=== PATIENT | male | born 2000 | race African-American/Black ===

== ENCOUNTER 2020-04-30 06:13 | Emergency (ER) | payer OTHER, SELFPAY ==
--- NOTE | ~2020-04-30 | XR_ITS ---
EXAMINATION: XR chest 2V DATE: 04/30/2020 06:43 INDICATION: Midsternal chest pain TECHNIQUE: Frontal and lateral views of the chest are obtained COMPARISON: None available FINDINGS: The lungs are free of acute opacities. There is no pleural effusion or pneumothorax. The ca rdiomediastinal silhouette is normal. The visualized bones and soft tissues are unremarkable. IMPRESSION: 1. No acute cardiopulmonary abnormality. Reviewed, dictated and finalized at location A. MECHANICAL ENGINEER
[2020-04-30 06:16] VITALS: BP 134/88; PULSE 81; RESP 24; TEMP 36.9; O2SAT 100
[2020-04-30 06:20] VITALS: PULSE 70
--- NOTE | 2020-04-30 06:22 | ECG_ITS ---
Measurements Intervals [place] Rate: 68 P: 70 W[place]: 154 QRS: 66 QRSD: 93 T: 56 QT: 381 QTc: 407 Interpretive Statements SINUS RHYTHM WITH SINUS ARRHYTHMIA BASELINE WANDER- II, III, V4 NORMAL ECG Electronically Signed On 04-30-2020 7:07:19 BODY WELDER by Chepe Hilario D.O.
[2020-04-30 06:48] LABS: Anion Gap 8 mmol/L (8-16); Blood Urea Nitrogen 11 mg/dL (9-20); Calcium 9.3 mg/dL (8.4-10.2); Carbon Dioxide 28 mmol/L (22-30); Chloride 105 mmol/L (98-107); Estimated CRCL calculation 100 ml/min; Estimated Glomerular Filt Rate > 60; Glucose 80 mg/dL (75-110); Potassium 3.8 mmol/L (3.4-5.0); Sodium 141 mmol/L (137-145)
[2020-04-30 06:50] LABS: Basophils Percent Auto 0.5 % (0.2-1.2); Eosinophils Absolute Auto 0.1 K/mm3 (0-0.3); Hematocrit 41.5 % (42.0-52.0); Hemoglobin 13.8 g/dL (14.0-18.0); Immature Granulocyte Absolute 0.02 K/mm3 (0.00-0.031); Immature Granulocyte Percent A 0.2 % (0-0.5); Lymphocytes Percent Auto 41.9 % (18.3-44.2); Mean Corpuscular HGB Conc 33.3 g/dl (32-36); Mean Corpuscular Hemoglobin 28.3 pg (26-34); Mean Platelet Volume 9.6 fl (7.4-10.4); Monocytes Absolute Auto 0.6 K/mm3 (0.1-0.6); Monocytes Percent Auto 7.2 % (2.6-8.5); Neutrophils Absolute Auto 4.2 K/mm3 (1.3-6.7); Neutrophils Percent Auto 49.2 % (45.5-73.1); Platelet Count Result 238 k/mm3 (150-375); Red Blood Count 4.88 M/mm3 (4.6-6.20); Red Cell Distribution Width 12.1 % (11.5-14.5); White Blood Count 8.6 K/mm3 (4.5-10.0)
[2020-04-30 06:53] LABS: Prothrombin Time 13.5 Seconds (11.1-14.7)
[2020-04-30 07:01] LABS: Troponin I < 0.012 ng/mL (0.000-0.034)
[2020-04-30 07:11] LABS: Partial Thromboplastin Time 30.9 SECONDS (22.3-36.8)
--- NOTE | 2020-04-30 07:38 | ED.CHESTPAIN ---
HPI - Chest Pain General Chief Complaint: Chest Pain Stated Complaint: chest pain Time Seen by Provider: 04/30/20 07:28 Source: patient Mode of arrival: ambulatory Limitations: no limitations History of Present Illness HPI narrative: 19 years old -[place] male presents with retrosternal burning sensation for few weeks Worse sometimes with eating and laying down flat. Nothing make it better. Patient denies any fever, chills, nausea, vomiting, shortness of breath, back pain, headache, exposure to anybody known to have COVID-19. Patient smokes marijuana, does not drink. Related Data Allergies Allergy/AdvReac Type Severity Reaction Status Date / Time No Known Allergies Allergy Verified 04/30/20 06:20 Review of Systems Review of Systems: Narrative: CONSTITUTIONAL: Denies fever, chills, or sweats. EYES: Denies visual changes, redness, or discharge. ENT: Denies rhinorrhea, congestion, sore throat, or otalgia. CARDIOVASCULAR: Denies chest pain, palpitations, or edema. RESPIRATORY: Denies cough or dyspnea. GASTROINTESTINAL: Denies abdominal pain, nausea, vomiting, or diarrhea. GENITOURINARY: Denies dysuria or hematuria. SKIN: Denies rash or itching. MUSCULOSKELETAL: Denies back pain, joint pain, or myalgia. NEUROLOGIC: Denies headache, numbness, or weakness. PSYCHIATRIC: Denies anxiety or depression. PMFSH Social History Social History Gender identity (if verbalized by the patient): Male Sexual Orientation (if Verbalized by the Patient): Straight or Heterosexual Exam Narrative: Exam Narrative: General appearance: Well-developed, well-nourished Skin: Normal color Head: Normocephalic, nontraumatic Eyes: Clear conjunctiva ENT: Oropharynx normal, ears normal, nose normal Neck: Supple, nontender Chest and respiratory: Airway patent, no respiratory distress, no accessory muscle use Heart: Regular rate/rhythm Abdomen: Soft, nontender, no organomegaly, quiet bowel sounds Vascular: Normal peripheral pulses, normal capillary refill. Musculoskeletal: Normal range of motion, nontender back Neurologic: Alert and oriented ?3, MOLD MAKER is normal as tested, no gross motor deficit Course Course Emergency Course: Stable Vital Signs Vital signs: Vital Signs Temperature 36.9 C 04/30/20 06:16 Pulse Rate 81 04/30/20 06:16 Respiratory Rate 24 H 04/30/20 06:16 Blood Pressure 134/88 04/30/20 06:16 Pulse Oximetry 100 04/30/20 06:16 Temperature 36.9 C 04/30/20 06:16 Pulse Rate 70 04/30/20 06:20 Respiratory Rate 24 H 04/30/20 06:16 Blood Pressure 134/88 04/30/20 06:16 Pulse Oximetry 100 04/30/20 06:16 MDM - Chest Pain MDM Narrative Medical decision making narrative: Retrosternal burning sensation. High likely acid reflux. Labs, EKG, chest x-ray ordered. Further plan to follow Differential Diagnosis Differential diagnosis: Likely pneumothorax, atypical chest pain, costochondritis and chest pain Lab Data Result diagrams: 04/30/20 06:26 04/30/20 06:26 Labs: Lab Results 04/30/20 04/30/20 04/30/20 Range/Units 06:26 06:26 06:26 WBC 8.6 (4.5-10.0) K/mm3 RBC 4.88 (4.6-6.20) M/mm3 Hgb 13.8 L (14.0-18.0) g/dL Hct 41.5 L (42.0-52.0) % MCV 85.0 (80-100) fl MCH 28.3 (26-34) pg MCHC 33.3 (32-36) g/dl RDW 12.1 (11.5-14.5) % Plt Count 238 (150-375) k/mm3 MPV 9.6 (7.4-10.4) fl Immature Gran % (Auto) 0.2 (0-0.5) % Neut % (Auto) 49.2 (45.5-73.1) % Lymph % (Auto) 41.9 (18.3-44.2) % [place] % (Auto) 7.2 (2.6-8.5) % Eos % (Auto) 1.0 (0-4.4) % Baso % (Auto) 0.5 (0.2-1.2) %
[2020-04-30 08:35] VITALS: BP 121/63; PULSE 56; RESP 16; O2SAT 98
== END 2020-04-30 08:35 | disposition home or self-care (01) ==
PROVIDERS: General Practice; Emergency Provider Emergency Medicine
DX: R07.89 Other chest pain (principal)
CPT/HCPCS: 36415; 71046; 80048; 84484; 85025; 85610; 85730; 93005; 99284

== ENCOUNTER 2022-02-27 09:14 | Emergency (ER) | payer OTHER, SELFPAY ==
[2022-02-27 09:38] VITALS: BP 118/79; PULSE 78; RESP 18; TEMP 36.6; O2SAT 100
--- NOTE | 2022-02-27 10:10 | ED.URI ---
HPI - URI/Sore Throat General Chief Complaint: Upper Respiratory Infection Stated Complaint: SOB,Headache Time Seen by Provider: 02/27/22 10:10 Source: patient Mode of arrival: ambulatory Limitations: no limitations History of Present Illness HPI Narrative: 21 yo M presents with c/o cough, nasal congestion, scratchy throat for 3 days. Reports RSV exposure. Afebrile. Showed up to work today congested so was sent home. Needs work note. Denies CP and SOB. All systems reviewed and negative except as noted above. Related Data Allergies Allergy/AdvReac Type Severity Reaction Status Date / Time No Known Allergies Allergy Verified 04/30/20 06:20 Review of Systems Review of Systems: CONSTITUTIONAL: Denies fever, chills, or sweats. EYES: Denies visual changes, redness, or discharge. ENT: reports rhinorrhea, congestion, sore throat. Denies otalgia. CARDIOVASCULAR: Denies chest pain, palpitations, or edema. RESPIRATORY: report cough. Denies dyspnea. GASTROINTESTINAL: Denies abdominal pain, nausea, vomiting, or diarrhea. GENITOURINARY: Denies dysuria or hematuria. SKIN: Denies rash or itching. MUSCULOSKELETAL: Denies back pain, joint pain, or myalgia. NEUROLOGIC: Denies headache, numbness, or weakness. PSYCHIATRIC: Denies anxiety or depression. All other systems reviewed are negative, except as documented in HPI. [facility] Social History Social History Gender identity (if verbalized by the patient): Male Sexual Orientation (if Verbalized by the Patient): Straight or Heterosexual Comments At time of signature, agree with nursing past medical, surgical, social and family history. There is no relevant family history pertinent to the presenting complaint. Exam Narrative: GENERAL: This is a well-nourished, well-developed patient, in no apparent distress. HEAD: normocephalic, atraumatic. EYES: PERRL. Sclera clear/white. Vision is grossly intact. EARS: External ears normal, auditory canals clear and without drainage, TMs normal without perforation. Hearing grossly intact. NOSE: External nose normal with clear nasal drainage, mild congestion. No sinus tenderness. THROAT: Mucous membranes moist, posterior pharynx clear. NECK: Neck supple, non-tender without lymphadenopathy, masses or thyromegaly. CARDIOVASCULAR: Regular rate and rhythm without murmurs, gallops, or rubs. RESPIRATORY: Clear to auscultation. Breath sounds equal bilaterally. No wheezes, rales, or rhonchi. SKIN: warm, Dry, intact with no suspicious lesions or rash, good texture and turgor. NEURO: awake, alert, and oriented to person, place and time. There were no obvious focal neurologic abnormalities. EXTREMITIES: No joint tenderness, effusion, or edema noted. Course Course Level of Care: Express Care Visit Vital Signs Vital signs: Vital Signs Temperature 36.6 C 02/27/22 09:38 Pulse Rate 78 02/27/22 09:38 Respiratory Rate 18 02/27/22 09:38 Blood Pressure 118/79 02/27/22 09:38 Pulse Oximetry 100 02/27/22 09:38 Oxygen Delivery Room Air 02/27/22 09:38 Temperature 36.6 C 02/27/22 09:38 Pulse Rate 78 02/27/22 09:38 Respiratory Rate 18 02/27/22 09:38 Blood Pressure 118/79 02/27/22 09:38 Pulse Oximetry 100 02/27/22 09:38 Oxygen Delivery Room Air 02/27/22 09:38 Reviewed MDM - URI/Sore Throat MDM Narrative Medical decision making narrative: Patient is aware of diagnosis, understands and agrees to treatment plan. Anticipatory guidance given. Patient agrees to follow-up as directed and is aware of reasons to seek care at the emergency department. Portions of this record may have been created with voice recognition software negative COVID, RSV and influenza test. Afebrile. Well-appearing. Recommend treatment for viral URI with [id number] medications. Differential Diagnosis Differential diagnosis: Likely upper respiratory infection, sinusitis, viral infection
== END 2022-02-27 10:21 | disposition home or self-care (01) ==
PROVIDERS: Emergency Provider Nurse Practitioner Family
DX: J06.9 Acute upper respiratory infection, unspecified (principal); Z76.0 Encounter for issue of repeat prescription; Z20.822 Contact with and (suspected) exposure to COVID-19; J45.909 Unspecified asthma, uncomplicated
CPT/HCPCS: 87420; 87426; 87804; 99213; C9803; G0463

== ENCOUNTER 2022-04-15 13:59 | Emergency (ER) | payer OTHER, SELFPAY ==
--- NOTE | 2022-04-15 14:23 | ED.MALEGU ---
HPI - Male Genitourinary General Chief complaint: Urogenital-Male Stated complaint: UTI Time Seen by Provider: 04/15/22 14:23 Source: patient Mode of arrival: ambulatory Limitations: no limitations History of Present Illness HPI Narrative: Corie is a 21-year-old male patient presenting to clinic today with complaints of penile discharge. He reports symptoms started on Tuesday. He had a new sexual partner on Tuesday and said that symptoms started shortly after. Has greenish white discharge coming from the penis. Also reports some discomfort with urination. No fever or chills Related Data Allergies Allergy/AdvReac Type Severity Reaction Status Date / Time No Known Allergies Allergy Verified 04/15/22 14:20 Review of Systems Review of Systems: Pertinent positives per HPI. Patient denies any fever, chills, rash, headache, visual changes, dizziness, cough, runny nose, sore throat, shortness of breath, chest pain, palpitations, nausea, vomiting, diarrhea, constipation, abdominal pain, or any urinary issues. PMFSH Comments At the time of my signature, I reviewed and agree with the nursing past medical, surgical, social, and family history. There is no relevant family history pertinent to the patient complaint. Exam Narrative: General: Well-developed, well nourished, in no apparent distress. Head: Normocephalic, atraumatic. Cardio: Regular rate and rhythm, s1 and s2 normal, no murmur appreciated. Resp: Clear to auscultation bilaterally, no rhonchi, rales, wheezing or rubs. Abdomen: Soft, pliable, bowel sounds present in all quadrants, non-tender to palpation, no organomegly, no CVAT tenderness. Course Course Emergency Course: Portions of this record may have been created with voice recognition software. Level of Care: Express Care Visit Vital Signs Vital signs: Vital signs reviewed MDM - Male Genitourinary MDM Narrative Medical decision making narrative: at the time of visit patient is resting comfortably on exam table. Urinalysis was sent for chlamydia, gonorrhea, trich testing. Prescription for doxycycline was sent to the pharmacy and Rocephin 500 mg IM was given in the clinic today. Anticipatory guidance and supportive measures were discussed with the patient he voiced understanding discharge instructions agrees to treatment plan. Lab Data Labs: Urine Characteristics Clear Discharge Plan Discharge Clinical Impression: Discharge from penis Patient Disposition: Home, Self-Care Condition: Stable Instructions: Antibiotic Form Additional Instructions: Rocephin 500 mg IM given in the clinic today- this will treat gonorrhea Take doxycycline 100 mg twice daily x7 days as prescribed- this will treat chlamydia We have tested/treated you for STIs in the clinic today. Avoid any sexual activity- includes oral, anal, or vaginal intercourse until you get results back and have completed any additional recommended treatment regimens. We will contact you if testing is positive and make sure your treatment was appropriate for the type of STI. If symptoms worsen after treatment recommend reevaluation with your PCP or go to the STD clinic Prescriptions: New doxycycline monohydrate 100 mg capsule 100 mg PO BID 7 Days Qty: 14 0RF Follow-up/Referrals: PHYSICIAN,PATCH PRESS OPERATOR [Primary Care Provider] - Time of Disposition: 14:37 Quality NIHSS Nursing Documentation ED NIHSS nursing documentation: reviewed/agree
[2022-04-15 14:32] VITALS: BP 128/86; PULSE 65; RESP 16; TEMP 37.2; O2SAT 99
[2022-04-15] MEDS: cefTRIAXone 500 MG, LIDOCAINE HCL 1% LOCAL INJ 1 ML IM (14:42)
== END 2022-04-15 15:02 | disposition home or self-care (01) ==
PROVIDERS: Emergency Provider Nurse Practitioner Family
DX: R36.9 Urethral discharge, unspecified (principal)
CPT/HCPCS: 87491; 87591; 87661; 96372; 99213; G0463; J0696

== ENCOUNTER 2022-06-16 13:10 | Emergency (ER) | payer OTHER, SELFPAY ==
[2022-06-16 13:19] VITALS: BP 121/64; PULSE 77; RESP 14; TEMP 36.5; O2SAT 100
--- NOTE | 2022-06-16 13:20 | ED.URI ---
HPI - URI/Sore Throat General Chief Complaint: Upper Respiratory Infection Stated Complaint: SOB Time Seen by Provider: 06/16/22 13:21 Source: patient Mode of arrival: ambulatory Limitations: no limitations History of Present Illness HPI Narrative: Coire is a 21-year-old male patient presenting to the clinic today with complaints of shortness of breath, nasal congestion, and sore throat x2 days. He reports he has a history of asthma and he has been using his inhaler without relief. States he taken some [place] and that did help with the sore throat. MD elicited complaint: sore throat, nasal congestion and other (Shortness of breath) Related Data Home Medications Medication Instructions Recorded Confirmed albuterol 90 mcg/actuation aerosol 90 mcg inhalation Q4-6H PRN SOB 06/16/22 06/16/22 inhaler Allergies Allergy/AdvReac Type Severity Reaction Status Date / Time No Known Allergies Allergy Verified 06/16/22 13:11 Review of Systems Review of Systems: Pertinent positives per HPI. Patient denies any fever, chills, rash, headache, visual changes, dizziness, chest pain, palpitations, nausea, vomiting, diarrhea, constipation, abdominal pain, or any urinary issues. PMFSH Comments At the time of my signature, I reviewed and agree with the nursing past medical, surgical, social, and family history. There is no relevant family history pertinent to the patient complaint. Exam Narrative: General: Well-developed, well nourished, in no apparent distress Head: Normocephalic, atraumatic Eyes: Pupils equally round and reactive to light bilaterally, EOM intact, sclera and conjunctive clear, no discharge, lids normal Ears: TMs intact and clear, ear canals clear, no drainage, grossly hearing normal. Nose: Nares patent, no discharge, no inflammation, no sinus tenderness. Mouth: Oral pharynx without lesions or masses, good dentition, MMM. Neck: Supple, trachea midline, no enlargement of anterior or posterior cervical nodes, no thyroid masses or goiter palpable. Cardio: Regular rate and rhythm, s1 and s2 normal, no murmur appreciated. Resp: Clear to auscultation bilaterally, no rhonchi, rales, wheezing or rubs Course Course Emergency Course: Portions of this record may have been created with voice recognition software. Level of Care: Express Care Visit Vital Signs Vital signs: Vital Signs Temperature 36.5 C 06/16/22 13:19 Pulse Rate 77 06/16/22 13:19 Respiratory Rate 14 06/16/22 13:19 Blood Pressure 121/64 06/16/22 13:19 Pulse Oximetry 100 06/16/22 13:19 Oxygen Delivery Room Air 06/16/22 13:19 Temperature 36.5 C 06/16/22 13:19 Pulse Rate 77 06/16/22 13:19 Respiratory Rate 14 06/16/22 13:19 Blood Pressure 121/64 06/16/22 13:19 Pulse Oximetry 100 06/16/22 13:19 Oxygen Delivery Room Air 06/16/22 13:19 Vital signs reviewed MDM - URI/Sore Throat MDM Narrative Medical decision making narrative: At the time of visit patient is resting comfortably on exam table. Strep screen was obtained was negative in the clinic today. I suspect patient has URI/pharyngitis. Lung sounds are clear. Will send in prescription for prednisone to help with nasal congestion and pharyngitis. Supportive measures were discussed with the patient he voiced understanding discharge instructions agrees to treatment plan Differential Diagnosis Differential diagnosis: Likely upper respiratory infection, viral infection, bronchitis, influenza, pharyngitis and other (Asthma exacerbation) Discharge Plan Discharge Clinical Impression: Upper respiratory infection Qualifiers: URI type: unspecified URI Qualified Code(s): J06.9 - Acute upper respiratory infection, unspecified Pharyngitis Qualifiers: Pharyngitis/tonsillitis etiology: unspecified etiology Qualified Code(s): J02.9 - Acute pharyngitis, unspecified Patient Disposition: Home, Self-Care Condition: Stable Instructions: Antibiotic F
== END 2022-06-16 13:45 | disposition home or self-care (01) ==
PROVIDERS: Emergency Provider Nurse Practitioner Family
DX: J02.9 Acute pharyngitis, unspecified (principal)
CPT/HCPCS: 87081; 87880; 99213; G0463

== ENCOUNTER 2022-08-30 16:34 | Emergency (ER) | payer OTHER, SELFPAY ==
[2022-08-30 16:48] VITALS: BP 123/67; PULSE 80; RESP 12; TEMP 36.7; O2SAT 100
--- NOTE | 2022-08-30 16:48 | ED.URI ---
HPI - URI/Sore Throat General Chief Complaint: Upper Respiratory Infection Stated Complaint: painful respiration on inspiration Time Seen by Provider: 08/30/22 17:40 Source: patient and RN notes reviewed Mode of arrival: ambulatory Limitations: no limitations History of Present Illness HPI Narrative: 21-year-old male presents with concern of for painful respiration on inspiration and, epigastric pain. Reports he used his inhaler earlier it helps. Reports he still having epigastric pain. He reports history of atypical chest pain that is related to acid reflux. He reports he has been belching a lot. He reports he is running out of his inhaler. He reports he took the medication from his grandmother, he thinks it was Carafate a few weeks ago that helped with the symptoms. MD elicited complaint: cough Related Data Allergies Allergy/AdvReac Type Severity Reaction Status Date / Time No Known Allergies Allergy Verified 08/30/22 17:08 Review of Systems Review of Systems: CONSTITUTIONAL: Denies malaise, chills, sweats, or fever. EYES: Denies visual changes, redness, or discharge. ENT: Denies rhinorrhea, congestion, sinus pain, otalgia and sore throat. CARDIOVASCULAR: Denies chest pain, palpitations, or edema. RESPIRATORY: Reports cough, painful inspirations. Denies dyspnea. GASTROINTESTINAL: Reports epigastric pain and belching. Denies nausea, vomiting, diarrhea SKIN: Denies rash or itching. MUSCULOSKELETAL: Denies myalgia. NEUROLOGIC: Denies headache. All systems reviewed & are unremarkable except as noted in HPI and below PMFSH Social History Social History Gender identity (if verbalized by the patient): Male Sexual Orientation (if Verbalized by the Patient): Straight or Heterosexual Comments At time of signature, agree with nursing past medical, surgical, social and family history. There is no relevant family history pertinent to the presenting complaint Exam Narrative: GENERAL: Well-appearing, well-nourished, and in no acute distress. HEAD: Normocephalic EYES: PERRLA, conjunctivae clear ENT: Nares clear, turbinates edematous and erythematous, clear discharge. Mucous membranes moist. TM pearly sanchez with dull light reflex bilaterally; no tragal tenderness. Oropharynx not erythematous without lesions. Tonsils not enlarged and without exudate, no drooling, no hoarseness, no trismus, uvula midline. NECK: Supple. No lymphadenopathy CHEST: Clear to auscultation, breath sounds equal. No wheezing, rhonchi, rales, or stridor. No respiratory distress, speaks in full sentences. HEART: Regular rate and rhythm. No murmur heard. ABD: Soft, nontender, normal bowel sounds SKIN: Warm, dry, no rash. NEURO: Alert and oriented x3. PSYCH: Normal mood and affect Course Course Emergency Course: Patient is aware of diagnosis, understands and agrees to treatment plan. Anticipatory guidance given. Patient agrees to follow-up as directed and is aware of reasons to seek care at the emergency department. Portions of this record may have been created with voice recognition software Level of Care: Express Care Visit Reevaluation(s) Reevaluation #1: Patient reports epigastric pain went away with GI cocktail Date: 08/30/22 Time: 18:08 Vital Signs Vital signs: Vital Signs Temperature 98.1 F 08/30/22 16:48 Pulse Rate 80 08/30/22 16:48 Respiratory Rate 12 08/30/22 16:48 Blood Pressure 123/67 08/30/22 16:48 Pulse Oximetry 100 08/30/22 16:48 Oxygen Delivery Room Air 08/30/22 16:48 Temperature 98.1 F 08/30/22 16:48 Pulse Rate 80 08/30/22 16:48 Respiratory Rate 12 08/30/22 16:48 Blood Pressure 123/67 08/30/22 16:48 Pulse Oximetry 100 08/30/22 16:48 Oxygen Delivery Room Air 08/30/22 16:48 Reviewed. MDM - URI/Sore Throat MDM Narrative Medical decision making narrative: Differential diagnosis considered: [place] virus, strep pharyngitis
[2022-08-30] MEDS: LIDOCAINE HCL 2% VISC SOLN 15 ML UDC PO (17:56)
[2022-08-30] MEDS: MAG HYDROX/AL HYDROX/SIMETH 30 ML UDC PO (17:56)
== END 2022-08-30 18:23 | disposition home or self-care (01) ==
PROVIDERS: Emergency Provider Nurse Practitioner
DX: R10.13 Epigastric pain (principal); J45.909 Unspecified asthma, uncomplicated; K21.9 Gastro-esophageal reflux disease without esophagitis
CPT/HCPCS: 99213; A9270; G0463

== ENCOUNTER 2022-10-16 16:54 | Emergency (ER) | payer SELFPAY ==
[2022-10-16 17:08] VITALS: BP 121/76; PULSE 55; RESP 16; TEMP 37.3; O2SAT 99
--- NOTE | 2022-10-16 17:23 | ED.GENADULT ---
HPI - General Adult General Chief complaint: Psychiatric Symptoms Stated complaint: depressed state Time Seen by Provider: 10/16/22 17:23 Source: patient Mode of arrival: ambulatory Limitations: no limitations History of Present Illness HPI narrative: 21-year-old male presents with his girlfriend with complaint depression. Reports that he has been depressed for the past 5 days. Denies SI/ HI. Patient alert and talkative. Does not have a primary care physician. States he has a history of depression in use to have therapy done at a place in [place] that Has closed. he has never taking any medications to treat his depression. States that due to his depression he had to miss work today and needs a note. All systems reviewed and negative except as noted above. Related Data Home Medications Medication Instructions Recorded Confirmed albuterol 10/16/22 Allergies Allergy/AdvReac Type Severity Reaction Status Date / Time No Known Allergies Allergy Verified 10/16/22 17:02 Review of Systems Review of Systems: CONSTITUTIONAL: Denies fever, chills, or sweats. EYES: Denies visual changes, redness, or discharge. ENT: Denies rhinorrhea, congestion, sore throat, or otalgia. CARDIOVASCULAR: Denies chest pain, palpitations, or edema. RESPIRATORY: Denies cough or dyspnea. GASTROINTESTINAL: Denies abdominal pain, nausea, vomiting, or diarrhea. GENITOURINARY: Denies dysuria or hematuria. SKIN: Denies rash or itching. MUSCULOSKELETAL: Denies back pain, joint pain, or myalgia. NEUROLOGIC: Denies headache, numbness, or weakness. PSYCHIATRIC: Denies anxiety . Reports depression. All other systems reviewed are negative, except as documented in HPI. PMFSH Social History Social History Gender identity (if verbalized by the patient): Male Sexual Orientation (if Verbalized by the Patient): Straight or Heterosexual Comments At time of signature, agree with nursing past medical, surgical, social and family history. There is no relevant family history pertinent to the presenting complaint. Exam Narrative: GENERAL: This is a well-nourished, well-developed patient, in no apparent distress. HEAD: normocephalic, atraumatic. EYES: PERRL. Sclera clear/white. Vision is grossly intact. EARS: External ears normal NOSE: External nose normal NECK: Neck supple, non-tender without lymphadenopathy, masses or thyromegaly. CARDIOVASCULAR: Regular rate and rhythm without murmurs, gallops, or rubs. RESPIRATORY: Clear to auscultation. Breath sounds equal bilaterally. No wheezes, rales, or rhonchi. SKIN: warm, Dry, intact with no suspicious lesions or rash, good texture and turgor. NEURO: awake, alert, and oriented to person, place and time. There were no obvious focal neurologic abnormalities. EXTREMITIES: No joint tenderness, effusion, or edema noted. Course Course Level of Care: Express Care Visit Vital Signs Vital signs: Vital Signs Temperature 37.3 C 10/16/22 17:08 Pulse Rate 55 L 10/16/22 17:08 Respiratory Rate 16 10/16/22 17:08 Blood Pressure 121/76 10/16/22 17:08 Pulse Oximetry 99 10/16/22 17:08 Oxygen Delivery Room Air 10/16/22 17:08 Temperature 37.3 C 10/16/22 17:08 Pulse Rate 55 L 10/16/22 17:08 Respiratory Rate 16 10/16/22 17:08 Blood Pressure 121/76 10/16/22 17:08 Pulse Oximetry 99 10/16/22 17:08 Oxygen Delivery Room Air 10/16/22 17:08 reviewed Medical Decision Making MDM Narrative Medical decision making narrative: patient is well-appearing. Requesting a work note due to missing work today because of his depression. Patient is alert and talkative. None tearful. Laughing with staff at registration and while getting vital signs taken. Patient given referral to [facility] for further evaluation of his depression. Patient is aware of diagnosis, understands and agrees to treatment plan. Anticip
== END 2022-10-16 17:38 | disposition home or self-care (01) ==
PROVIDERS: Emergency Provider Nurse Practitioner Family
DX: Z71.1 Person with feared health complaint in whom no diagnosis is made (principal); J45.909 Unspecified asthma, uncomplicated; K21.9 Gastro-esophageal reflux disease without esophagitis
CPT/HCPCS: 99211; G0463

== ENCOUNTER 2023-05-21 18:46 | Emergency (ER) | payer OTHER, SELFPAY ==
[2023-05-21 19:05] VITALS: BP 118/65; PULSE 84; RESP 18; TEMP 36.6; O2SAT 98
--- NOTE | 2023-05-21 19:11 | ED.GENADULT ---
HPI - General Adult General Chief complaint: Extremity Injury, Lower Stated complaint: Right Ankle Pain Time Seen by Provider: 05/21/23 19:11 Source: patient Mode of arrival: ambulatory Limitations: no limitations History of Present Illness HPI narrative: 22-year-old male patient presents to the [facility] for evaluation of right foot pain. Patient states that he was playing on a basketball team yesterday and landed wrong on his ankle and had some pain. Patient states this was a work basketball E so he was bench for the rest the game. Patient states he rested it last night today feeling much better able to walk on it not having any pain. Patient states he has had issues with his right foot and ankle before in the past. Patient states he is here today because his boss when coming have him checked out to ensure that he is okay to return to work today. Related Data Home Medications Medication Instructions Recorded Confirmed albuterol 90 mcg/actuation aerosol 90 mcg inhalation Q4-6H PRN SOB 06/16/22 05/21/23 inhaler Allergies Allergy/AdvReac Type Severity Reaction Status Date / Time No Known Allergies Allergy Verified 10/20/22 12:49 Review of Systems Review of Systems: CONSTITUTIONAL: Denies fever, chills, or sweats. EYES: Denies visual changes, redness, or discharge. ENT: Denies rhinorrhea, congestion, sore throat, or otalgia. CARDIOVASCULAR: Denies chest pain, palpitations, or edema. RESPIRATORY: Denies cough or dyspnea. GASTROINTESTINAL: Denies abdominal pain, nausea, vomiting, or diarrhea. GENITOURINARY: Denies dysuria or hematuria. SKIN: Denies rash or itching. MUSCULOSKELETAL: Denies back pain, joint pain, or myalgia. Positive right foot pain NEUROLOGIC: Denies headache, numbness, or weakness. PSYCHIATRIC: Denies anxiety or depression. [facility] Social History Social History (System 10/20/22 @ 12:49 by Flaco Tovar) Substance use type: marijuana Gender identity (if verbalized by the patient): Male Sexual Orientation (if Verbalized by the Patient): Straight or Heterosexual Exam Narrative: GENERAL: Well-appearing, well-nourished, and in no acute distress. HEAD: Normocephalic, atraumatic. EYES: PERRLA and EOMI. ENT: Nares clear, no rhinorrhea or epistaxis. Mucous membranes moist. NECK: Supple. No lymphadenopathy CHEST: Clear to auscultation. No respiratory distress. HEART: Regular rate and rhythm. No murmur heard. Normal peripheral pulses. ABDOMEN: Soft, nontender, nondistended, normal active bowel sounds. EXTREMITIES: Patient able to bear weight and ambulate without pain. No surface trauma, ecchymosis, erythema, lesions, ulcers or break in skin integrity. The R foot is without obvious asymmetry or deformity when compared to the L foot. No bony step-off, tender to palpation over the midfoot, no pain over the toes, hindfoot or sole. Normal plantar/dorsiflexion, inversion/eversion. Distal motor and neurovascular status are intact SKIN: Warm, dry, no rash. NEURO: No focal deficits. Alert and oriented x3. Course Course Level of Care: Express Care Visit Vital Signs Vital signs: Vital Signs Temperature 36.6 C 05/21/23 19:05 Pulse Rate 84 05/21/23 19:05 Respiratory Rate 18 05/21/23 19:05 Blood Pressure 118/65 05/21/23 19:05 Pulse Oximetry 98 05/21/23 19:05 Oxygen Delivery Room Air 05/21/23 19:05 Temperature 36.6 C 05/21/23 19:05 Pulse Rate 84 05/21/23 19:05 Respiratory Rate 18 05/21/23 19:05 Blood Pressure 118/65 05/21/23 19:05 Pulse Oximetry 98 05/21/23 19:05 Oxygen Delivery Room Air 05/21/23 19:05 Medical Decision Making MDM Narrative Medical decision making narrative: Due the fact the patient feels that he has no pain today there is only very mild tenderness to the top of the foot most likely an over strain of tendon or ligament I do not feel that we need to do any x-rays at this time. Discussed with patient we will Ismael wrap the foot to
== END 2023-05-21 19:16 | disposition home or self-care (01) ==
PROVIDERS: Emergency Provider Nurse Practitioner Family
DX: S93.401A Sprain of unspecified ligament of right ankle, initial encounter (principal); X50.9XXA Other and unspecified overexertion or strenuous movements or postures, initial encounter; Y93.67 Activity, basketball; F12.90 Cannabis use, unspecified, uncomplicated
CPT/HCPCS: 99212; G0463

== ENCOUNTER 2024-02-01 13:18 | Emergency (ER) | payer SELFPAY ==
[2024-02-01 13:30] VITALS: BP 121/69; PULSE 77; RESP 18; TEMP 37.1; O2SAT 100
--- NOTE | 2024-02-01 13:34 | ED.URI ---
HPI - URI/Sore Throat General Chief Complaint: Upper Respiratory Infection Stated Complaint: Sinus Time Seen by Provider: 02/01/24 13:50 Source: patient, RN notes reviewed and old records reviewed Mode of arrival: ambulatory Limitations: no limitations History of Present Illness HPI Narrative: Patient with history of allergic rhinitis presents today with complaints of runny nose scratchy throat, sneezing, cough. He reports that he noted some discomfort in the throat after his son was over the weekend, when he voice this at work today, he was told he needed to present for testing to make sure that he did not have COVID or strep throat. He denies any fever, chills, sweats. He has not been taking any medication for any of his symptoms. He is in no distress Related Data Home Medications Medication Instructions Recorded Confirmed No Home Medications 02/01/24 02/01/24 Allergies Allergy/AdvReac Type Severity Reaction Status Date / Time No Known Allergies Allergy Verified 02/01/24 13:24 Review of Systems Review of Systems: All systems reviewed & are unremarkable except as noted in HPI and below Constitutional: Constitutional: Reports no additional constitutional complaints ENT: Reports system reviewed and no additional complaints, except as documented, Reports nasal discharge and Reports sore throat Cardiovascular: Cardiovascular: Reports no additional cardiovascular complaints Respiratory: Respiratory: Reports as per HPI, Reports no additional respiratory complaints and Reports cough Gastrointestinal: Gastrointestinal: Reports no additional gastrointestinal complaints Allergic/Immunologic: Allergic/Immunologic: Reports as per HPI, Reports itchy eyes and Reports seasonal rhinorrhea PMFSH Social History Social History Substance use type: marijuana Gender identity (if verbalized by the patient): Male Sexual Orientation (if Verbalized by the Patient): Straight or Heterosexual Comments At the time of my signature, I reviewed and agree with the nursing past medical, surgical, social, and family history. There is no relevant family history pertinent to the patient complaint. Exam Const: General: cooperative, no acute distress, alert and awake Orientation/consciousness: oriented to person, oriented to place and oriented to time HENMT: Head: normal to inspection Resp: Effort & Inspection: normal respiratory effort and able to speak in complete sentences Auscultation: clear to auscultation bilaterally, no crackles, no rales, no rhonchi and no wheezes Cardio: Palpation: normal PMI Rate: regular rate Rhythm: regular rhythm Heart sounds: S1 normal heart sound present and S2 normal heart sound present Neuro: General: oriented to person, oriented to place and oriented to time Cranial nerves: Yes CN's II-XII intact bilaterally Psych: Appearance: grossly normal Thought process: Normal thought process present Insight: Good insight present (Psych) Judgement: Good judgement present (Psych) Course Course Level of Care: Express Care Visit Vital Signs Vital signs: Vital Signs Temperature 98.7 F 02/01/24 13:30 Pulse Rate 77 02/01/24 13:30 Respiratory Rate 18 02/01/24 13:30 Blood Pressure 121/69 02/01/24 13:30 Pulse Oximetry 100 02/01/24 13:30 Oxygen Delivery Room Air 02/01/24 13:30 Temperature 98.7 F 02/01/24 13:30 Pulse Rate 77 02/01/24 13:30 Respiratory Rate 18 02/01/24 13:30 Blood Pressure 121/69 02/01/24 13:30 Pulse Oximetry 100 02/01/24 13:30 Oxygen Delivery Room Air 02/01/24 13:30 Reviewed MDM - URI/Sore Throat MDM Narrative Medical decision making narrative: Patient here because his employer is requiring work note. Symptoms and history consistent with allergic rhinitis. Negative COVID, negative flu, negative strep. Work note provided. Discharge instructions reviewed with patient, as well as pro
== END 2024-02-01 14:10 | disposition home or self-care (01) ==
PROVIDERS: Emergency Provider Nurse Practitioner Family
DX: J30.9 Allergic rhinitis, unspecified (principal); Z20.822 Contact with and (suspected) exposure to COVID-19
CPT/HCPCS: 87081; 87635; 87804; 87880; 99213; G0463

== ENCOUNTER 2024-12-01 15:57 | Emergency (ER) | payer OTHER, SELFPAY ==
--- NOTE | ~2024-12-01 | CT_ITS ---
EXAMINATION: CT brain wo con DATE: 12/01/2024 16:43 INDICATION: syncope . TECHNIQUE: Computed tomography (CT) of the head was performed without intravenous contrast. The mA wa s adjusted according to patient size. Iterative reconstruction technique was employed. The dose-lengt h product was 605.33 mGy-cm. COMPARISON: None. FINDINGS: No acute intracranial hemorrhage or extra-axial fluid collection. No hydrocephalus, mass, or herniation. No acute ischemic infarct. Unremarkable dural venous sinus attenuation. No acute osseous abnormality. The aerated spaces are clear. IMPRESSION: No acute intracranial process. Reviewed, dictated and finalized at location K.
--- NOTE | ~2024-12-01 | XR_ITS ---
EXAMINATION: XR chest 2V Exam Date/Time: 12/01/2024 16:49 CDT HISTORY: tachycardia, PT STATES 'ALMOST PASSED OUT AT WORK' Comparison: 04/30/2020. RESULT: Lines, tubes, and devices: None. Lungs and pleura: Clear. Cardiomediastinal silhouette: Stable. Other: No acute osseous or upper abdominal finding. IMPRESSION: No acute cardiopulmonary process. Reviewed, dictated and finalized at location K.
--- NOTE | 2024-12-01 16:01 | ECG_ITS ---
Test Date: 2024-12-01 16:11:23 Measurements Intervals [place] Rate: 54 P: 59 KS: 170 QRS: 65 QRSD: 97 T: 58 QT: 406 QTc: 385 Interpretive Statements SINUS BRADYCARDIA WITH OCCASIONAL ECTOPIC PREMATURE COMPLEXES ST ELEVATION IN DIFFUSE LEADS- PROBABLY EARLY REPOLARIZATION ABNORMALITY BORDERLINE ECG No previous ECG available for comparison Electronically Signed On 12-01-2024 19:52:08 CDT by Chepe Hilario D.O.
[2024-12-01 16:07] VITALS: BP 137/87; PULSE 62; RESP 16; TEMP 36.6; O2SAT 100
[2024-12-01 16:30] VITALS: BP 138/105; PULSE 56; RESP 16; O2SAT 100
--- NOTE | 2024-12-01 16:32 | ED.GENADULT ---
HPI - General Adult General Chief complaint: Environmental Exposure Stated complaint: heat exhaustion Source: patient Mode of arrival: EMS Limitations: no limitations History of Present Illness HPI narrative: Patient is a 23-year-old male who presents the ED via EMS with report of heat exposure. 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 He began having headache, feeling lightheaded, somewhat short of breath. He went to sit in the back of his truck and believes he may have passed out or fallen asleep. He was woken up by a bystander who found him in the back of the truck and put water on him to cool him down. EMS was then called. Patient was noted to have frequent PVCs by EMS. He is feeling much better after fluids given by EMS. He reports very mild lightheadedness currently. Denies chest pain, difficulty breathing, focal numbness or weakness. Related Data Home Medications ?Medication ?Instructions ?Recorded ?Confirmed ?Last Taken ?Type No Home Medications 02/01/24 02/01/24 Unknown History Allergies Allergy/AdvReac Type Severity Reaction Status Date / Time No Known Allergies Allergy Verified 02/01/24 13:24 Review of Systems Review of Systems: All systems reviewed & are unremarkable except as noted in HPI. All systems reviewed & are unremarkable except as noted in HPI and below PMFSH Social History Social History Substance use type: marijuana Gender identity (if verbalized by the patient): Male Sexual Orientation (if Verbalized by the Patient): Straight or Heterosexual Exam Narrative: GENERAL: Well appearing, well-nourished, non-toxic, in no acute distress. HEAD: Normocephalic, atraumatic. RESPIRATORY: Airway patent, respirations nonlabored. Clear to auscultation bilaterally, no rales, rhonchi, wheezing. CARDIOVASCULAR: Regular rate and rhythm without murmurs, rubs, or gallops. Peripheral pulses intact. MUSCULOSKELETAL: Moves all extremities. No gross deformities. SKIN: Warm, dry, normal color. NEURO: A&O X3. Speech clear. Cranial nerves II-XII grossly intact. Steady gait. No ataxic movements. No focal deficits. PSYCHIATRIC: Appropriate mood and affect. Normal interaction. Course Vital Signs Vital signs: Vital Signs Temperature 97.9 F 12/01/24 16:07 Pulse Rate 62 12/01/24 16:07 Respiratory Rate 16 12/01/24 16:07 Blood Pressure 137/87 12/01/24 16:07 Pulse Oximetry 100 12/01/24 16:07 Oxygen Delivery Room Air 12/01/24 16:07 Temperature 97.8 F 12/01/24 18:30 Pulse Rate 56 L 12/01/24 19:51 Respiratory Rate 17 12/01/24 19:51 Blood Pressure 134/70 12/01/24 19:51 Pulse Oximetry 100 12/01/24 19:51 Oxygen Delivery Room Air 12/01/24 16:07 Medical Decision Making MDM Narrative Medical decision making narrative: Patient presented to ED with concern for heat exhaustion, works as an [employer] seal delivery vehicle officer. Possible syncopal episode. Vital signs are stable upon arrival. Patient is in no acute distress at this time. Appears neurologically intact. Already feeling better after fluid administration given by EMS. Fluids are ongoing here. EKG with sinus tachycardia, PVCs. Likely early repol. Denying ongoing CP. Troponin undetectable. D-dimer within normal range Chest x-ray is clear. CT brain without acute findings Laboratory studies are otherwise fairly unremarkable. Stable electrolytes. Stable magnesium. CK within normal range. 3 hr trop also undetectable Patient given 2L of fluid, was able to eat/drink. Feeling much better. Feels ready to go home. Feel patient is safe for discharge home. Discussed techniques for staying cool/hydrated on shift, strict return precautions. Patient is in agreement with plan. Family at bedside. Patient discharged in stable condition. Medical Records Medical records reviewed: Yes I reviewed the external patient's medical records. Vital Signs Vital Signs: Vital Signs Temperature 97.9 F 12/01/24 16:07 Pulse Rate 62 12/01/24 16:07 Respiratory Rate 16 12/01/24 16:07 Blood Pressure 137/87 12/01/24 16:07 Pulse Oximetry 100 12/01/24 16:07 Oxygen Delivery Room Air 12/01/24 16:07 Temperature 97.8 F 12/01/24 18:30 Pulse Rate 56 L 12/01/24 19:51 Respiratory Rate 17 12/01/24 19:51 Blood Pressure 134/70 12/01/24 19:51 Pulse Oximetry 100 12/01/24 19:51 Oxygen Delivery Room Air 12/01/24 16:07 Lab Data Lab results reviewed: Yes I reviewed the patient's lab results. 12/01/24 16:26 12/01/24 16:26 Labs: Lab Results 12/01/24 12/01/24 Range/Units 16:26 19:09 WBC 8.3 (4.5-10.0) K/mm3 RBC 4.74 (4.6-6.20) M/mm3 Hgb 13.6 L (14.0-18.0) g/dL Hct 41.6 L (42.0-52.0) % MCV 87.8 (80-100) fl MCH 28.7 (26-34) pg MCHC 32.7 (32-36) g/dl RDW 12.8 (11.5-14.5) % Plt Count 185 (150-375) k/mm3 MPV 9.2 (7.4-10.4) fl Immature Gran % (Auto) 0.1 (0-0.5) % Neut % (Auto) 55.1 (45.5-73.1) % Lymph % (Auto) 32.3 (18.3-44.2) % [place] % (Auto) 9.0 H (2.6-8.5) % Eos % (Auto) 3.1 (0-4.4) % Baso % (Auto) 0.4 (0.2-1.2) % Lymph # (Auto) 2.67 (0.9-3.2) K/mm3 [place] # (Auto) 0.7 H (0.1-0.6) K/mm3 Eos # (Auto) 0.3 (0-0.3) K/mm3 Baso # (Auto) 0.0 (0.0-0.1) K/mm3 Abs Immat Gran (auto) 0.01 (0.00-0.031) K/mm3 Absolute Neuts (auto) 4.6 (1.3-6.7) K/mm3 Absolute Nucleated RBC 0.000 (0.0-0.012) K/mm3 Nucleated RBC % 0.0 (0.0-0.2) % PT 14.4 (11.1-14.7) Seconds INR 1.1 APTT 29.6 (22.3-36.8) Seconds D-Dimer < 0.27 (<0.48) ug/mL Sodium 138 (137-145) mmol/L Potassium 3.7 (3.4-5.0) mmol/L Chloride 107 (98-107) mmol/L Carbon Dioxide 24 (22-30) mmol/L Anion Gap 7 (4-12) mmol/L BUN 11 (9-20) mg/dL Creatinine 1.01 (0.7-1.3) mg/dL Estim Creat Clear Calc Not Reportable Estimated GFR > 60 (59 - ) Glucose 86 (65-110) mg/dL Calcium 8.8 (8.4-10.2) mg/dL Magnesium 1.8 (1.6-2.3) mg/dL Total Bilirubin 0.6 (0.2-1.3) mg/dL AST 24 (17-59) U/L ALT 12 (6-50) U/L Alkaline Phosphatase 74 (38-126) U/L Total Creatine Kinase 87 (55-170) U/L Troponin I < 0.012 < 0.012 (0.000-0.034) ng/mL Total Protein 6.9 (6.3-8.2) g/dL Albumin 4.0 (3.5-5.1) g/dL Imaging Data Attestation: I personally reviewed and interpreted this imaging study as follows: Radiologist's impression: ITS Impressions Head CT 12/01/24 16:51 IMPRESSION: No acute intracranial process. Chest X-Ray 12/01/24 16:56 IMPRESSION: No acute cardiopulmonary process. ECG Data EKG #1: Attestation: I personally reviewed and interpreted this ECG as follows: ECG completion date: 12/01/24 ECG completion time: 16:11 EKG Interpretation: bradycardia (54), sinus rhythm, PVCs and non-specific ST changes (early repol) Discharge Plan Discharge Clinical Impression: Dehydration Heat exposure Qualifiers: Encounter type: initial encounter Qualified Code(s): T67.9XXA - Effect of heat and light, unspecified, initial encounter Patient Disposition: Home Condition: Stable Instructions: Antibiotic Form, Heat Exhaustion (ED), Syncope (ED) Additional Instructions: Stay very well hydrated at home. Recommend plenty of fluids while on shift. Recommend cool rags, portable fans to help keep you cool throughout the day. Recommend frequent breaks in cool/air conditioned environment if possible. Recommend small meals throughout the day as well. Follow up with primary care doctor for further evaluation if needed. Return to the ED if you experience worsening or recurrent symptoms, severe dizziness/lightheadedness, chest pain, difficulty breathing, severe pain, or any other symptoms of concern. Patient Language: Montenegrin Prescriptions: No Action No Home Medications Follow-up/Referrals: PHYSICIAN,FLORAL DESIGNER SALESPERSON [Primary Care Provider] - Time of Disposition: 19:12
[2024-12-01 16:34] LABS: Hematocrit 41.6 % (42.0-52.0); Hemoglobin 13.6 g/dL (14.0-18.0); Immature Granulocyte Percent A 0.1 % (0-0.5); Lymphocytes Absolute Auto 2.67 K/mm3 (0.9-3.2); Mean Corpuscular HGB Conc 32.7 g/dl (32-36); Mean Corpuscular Hemoglobin 28.7 pg (26-34); Mean Corpuscular Volume 87.8 fl (80-100); Nucleated Red Blood Cells Absolute Auto 0.000 K/mm3 (0.0-0.012); Nucleated Red Blood Cells Perc 0.0 % (0.0-0.2); Platelet Count Result 185 k/mm3 (150-375); Red Blood Count 4.74 M/mm3 (4.6-6.20); White Blood Count 8.3 K/mm3 (4.5-10.0)
[2024-12-01 16:53] LABS: INR 1.1; Prothrombin Time 14.4 Seconds (11.1-14.7)
[2024-12-01 16:54] LABS: Partial Thromboplastin Time 29.6 Seconds (22.3-36.8)
[2024-12-01 16:59] LABS: Alanine Aminotransferase 12 U/L (6-50); Albumin Level 4.0 g/dL (3.5-5.1); Alkaline Phosphatase 74 U/L (38-126); Anion Gap 7 mmol/L (4-12); Aspartate Amino Transferase 24 U/L (17-59); Bilirubin,Total 0.6 mg/dL (0.2-1.3); Blood Urea Nitrogen 11 mg/dL (9-20); Calcium 8.8 mg/dL (8.4-10.2); Carbon Dioxide 24 mmol/L (22-30); Chloride 107 mmol/L (98-107); Creatine Kinase 87 U/L (55-170); Estimated Glomerular Filt Rate > 60; Glucose 86 mg/dL (65-110); Magnesium 1.8 mg/dL (1.6-2.3); Potassium 3.7 mmol/L (3.4-5.0); Sodium 138 mmol/L (137-145); Total Protein 6.9 g/dL (6.3-8.2)
[2024-12-01 17:09] LABS: Troponin I < 0.012 ng/mL (0.000-0.034)
[2024-12-01] MEDS: SODIUM CHLORIDE 0.9% IV 1,000 ML 999 ML (17:16)
--- OUTSIDE RECORDS SUMMARY | 2024-12-01 17:25 | XMS_ITS | Clinical Summary ---
Author Organization [facility] Address [facility] [place] [address] Care Team Providers Care [employer] Developer Name Role Phone None, Provider MD Primary Care Provider Unavaila ble Allergies No known active allergies Medications No known medications Immunizations Immunization Administration Dates Next Due Tdap (Boostrix) 02/20/2023 Social History Tobacco Use Types Packs/Day Years Used Date Smoking Tobacco: Never Smokeless Tobacco: Never Tobacco Cessation:Counseling Given: Not Answered Sex and Gender Information Value Date Recorded Sex Assigned at Not on file Legal Sex Male 5:57 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 Gender Identity Not on file Sexual Orientation Not on file Last Filed Vital Signs Vital Sign Reading Time Taken Comments Blood Pressure 125/62 02/20/2023 6:00 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 Pulse 93 02/20/2023 6:44 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 Temperature 36.7 C (98.1 F) 02/20/2023 6:00 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 Respiratory Rate 20 02/20/2023 6:00 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 Oxygen Saturation 99% 02/20/2023 6:00 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 Inhaled Oxygen Concentration - - Weight 65.4 kg (144 lb 2.9 oz) 02/20/2023 6:00 P M [employer] BILLING SPECIALIST Height 177.8 cm (5' 10) 02/20/2023 6:00 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 Body Mass Index 20.69 02/20/2023 6:00 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 Plan of Treatment Health Maintenance Due Date Last Done Comments Annual Physical 12/25/2002 Hepatitis C 12/25/2017 Meningococcal B Vaccine (2 of 2 - Bexsero SCDM 2-dose series) 05/10/2019 11/07/2018 COVID-19 Vaccine ( season) 2023 DTaP, Tdap and Td Vaccines (8 - Td or Tdap) 02/20/2033 02/20/2023, 12/08/2011, 01/13/2004, Additional history exists Pneumococcal Vaccine: Pediatrics (0 to 5 Years) and At-Risk Patients (6 to 49 Years) Aged Out 03/14/2001, 10/10/2000 No longer eligibl e based on patient's age to complete this topic Hepatitis B Vaccines Completed 01/13/2004, 10/10/2000, 04/20/2000, Additional history exists HPV Vaccines Completed 07/29/2010, 02/17, 01/01/2010 Meningococcal Vaccine Completed 01/16/2016, 012 RSV Immunizations Under 20 Months Aged Out No longer eligible based on patient's age to complete this topic Insurance MEDICAID Care Teams [employer] Relationship Specialty Start Date End Date None, Provider, PCP - General UNKNOWN PHYSICIAN SPECIALTY 02/20/23
[2024-12-01 17:30] VITALS: BP 127/93; PULSE 60; RESP 16; TEMP 36.5; O2SAT 100
[2024-12-01 18:30] VITALS: BP 131/84; PULSE 63; RESP 16; TEMP 36.6; O2SAT 100
--- NOTE | 2024-12-01 19:24 | PC.NURSE ---
Report received from ASHLEY Montejo. Assumed care of patient at this time.
[2024-12-01 19:38] LABS: Troponin I < 0.012 ng/mL (0.000-0.034)
[2024-12-01 19:51] VITALS: BP 134/70; PULSE 56; RESP 17; O2SAT 100
== END 2024-12-01 19:58 | disposition home or self-care (01) ==
PROVIDERS: Emergency Provider Physician Assistant
DX: T67.8XXA Other effects of heat and light, initial encounter (principal); E86.0 Dehydration; R00.1 Bradycardia, unspecified; X30.XXXA Exposure to excessive natural heat, initial encounter
CPT/HCPCS: 36415; 70450; 71046; 80053; 82550; 83735; 84484; 85025; 85380; 85610; 85730; 93005; 99284; J7030